=== PATIENT | male | born 1960 | race Caucasian/White ===

== ENCOUNTER 2016-11-11 09:49 | Emergency (ER) | payer OTHER ==
[~2016-11-11] VITALS: Ht 172.7 cm; Wt 77.3 kg
[~2016-11-11 09:49] MED LIST: NORC7.5T PO; ULTR50TA PO
[2016-11-11 09:51] VITALS: BP 145/88; PULSE 94; RESP 16; TEMP 98.6; O2SAT 95
[2016-11-11 10:00] VITALS: BP 161/97; PULSE 96; RESP 18; O2SAT 95; O2SAT 98
[2016-11-11] MEDS ORDERED: RESP: ALBUTEROL 2.5 MG/IPRATROPIUM 0.5 MG NEB (SCH) NEB ONE (10:30)
[2016-11-11] MEDS ORDERED: RESP: LIDOCAINE HCL 4% PF 5 ML NEB NEB ONE (10:30)
[2016-11-11] MEDS ORDERED: SODIUM CHLOR 0.9% 1000 ML INJ 1,000 ML IV ONE (10:30)
--- NOTE | 2016-11-11 10:33 | PD ---
HPI Chief Complaint: Cold / Flu Symptoms Time Seen by Provider: 09:59 Travel History International Travel<30 days: No Contact w/Intl Traveler<30days: No Traveled to known affect area: No History of Present Illness HPI The patient is a 56-year-old Qatari-speaking male who presents to the emergency department for cough and cold symptoms. A crew leader was used via cell phone for the history. The patient notes a 2 to three-day history of cough and cold. The patient does note a dry mostly nonproductive cough as well as postnasal drainage, chest congestion, and facial congestion. The patient complains of difficulty sleeping at night secondary to the cough. The patient also complains of intermittent chills and sweats, but is unsure if he has had a fever. The patient does complain of mild nausea with decreased appetite, but denies any vomiting, diarrhea, or abdominal pain. He does complain of mild myalgias. The patient denies any history of chronic medical problems, however, states occasionally his blood pressure is elevated. The patient takes no current medications and denies previous surgeries. The patient also denies tobacco use. PFSH Past Medical History Cancer: No Cardiovascular Problems: Yes (POSSIBLE HTN) Diminished Hearing: No Hepatitis: No Hypertension: Yes (POSSIBLE) Psychiatric: No Immunizations Current: Yes Tetanus Vaccination: > 5 Years Influenza Vaccination: Yes Past Surgical History Abdominal Surgery: Yes (hernia) Eye Surgery: Yes (CHILdHOOD) Joint Replacement: No Pacemaker: No Other Surgery: Yes (HERNIA REPAIR) Social History Alcohol Use: No Tobacco Use: No Substance Use: No Allergies-Medications (Allergen,Severity, Reaction): Coded Allergies: No Known Allergies (Verified , 11/11/16) Reported Meds & Prescriptions Reported Meds & Active Scripts Active [place] 7.5/325 (Hydrocodone/Acetaminophen 7.5/325) 7.5 Mg/325 Mg Tab 1 Tab PO Q4H PRN Reported Ultram (Tramadol HCl) 50 Mg Tab 50 Mg PO Q4H PRN Review of Systems Except as stated in HPI: all other systems reviewed are Neg General / Constitutional: Positive: Chills, No: Fever HENT: Positive: Sore Throat, Congestion Cardiovascular: No: Chest Pain or Discomfort Respiratory: Positive: Cough, No: Shortness of Breath Gastrointestinal: Positive: Nausea, Loss of Appetite, No: Vomiting, Diarrhea, Abdominal Pain Musculoskeletal: Positive: Myalgias Physical Exam Narrative GENERAL: Awake, alert, 56-year-old male who appears his stated age and is in no acute respiratory distress. SKIN: Warm and dry. HEAD: Atraumatic. Normocephalic. EYES: Pupils equal and round. No scleral icterus. No injection or drainage. ENT: No nasal bleeding or discharge. Oropharynx reveals erythema, however, no exudate visible. NECK: Trachea midline. No JVD. CARDIOVASCULAR: Regular, heart rate in the 90s. No audible murmur. RESPIRATORY: No accessory muscle use. Clear to auscultation. Breath sounds equal bilaterally. GASTROINTESTINAL: Abdomen soft, non-tender, nondistended. No rebound tenderness. MUSCULOSKELETAL: No obvious deformities. No clubbing. No cyanosis. No edema. NEUROLOGICAL: Awake and alert. No obvious cranial nerve deficits. Motor grossly within normal limits. Qatari-speaking.. PSYCHIATRIC: Appropriate mood and affect; insight and judgment normal. Data Data Last Documented VS Vital Signs Date Time Temp Pulse Resp B/P Pulse Ox O2 Delivery O2 Flow Rate FiO2 11/11/16 11:45 84 16 152/80 97 Nasal Cannula 2 11/11/16 09:51 98.6 Orders Complete Blood Count With Diff (11/11/16 10:18) Comprehensive Metabolic Panel (11/11/16 10:18) Chest, Single Ap (11/11/16 ) Influenzae A/B Antigen (11/11/16 10:18) Troponin I (11/11/16 10:18) Creatine Kinase (Cpk) (11/11/16 10:18) Lactic Acid (11/11/16 10:18) Albuterol-Ipratropium Neb (Duoneb Neb) (11/11/16 10:30) Lidocaine Pf 4% Neb (Lidocaine Pf 4% Neb (11/11/16 10:30) Sodium Chlor 0.9% 1000 Ml Inj (Ns 1000 M (11/11/16 10:30) Electrocardiogram (11/11/16 10:08) Labs Laboratory Tests Test 11/11/16 10:25 White Blood Count 6.6 TH/MM3 Red Blood Count 4.60 MIL/MM3 Hemoglobin 12.0 GM/DL Hematocrit 36.2 % Mean Corpuscular Volume 78.8 FL Mean Corpuscular Hemoglobin 26.2 PG Mean Corpuscular Hemoglobin 33.2 % Concent Red Cell Distribution Width 13.1 % Platelet Count 226 TH/MM3 Mean Platelet Volume 8.7 FL Neutrophils (%) (Auto) 69.6 % Lymphocytes (%) (Auto) 15.6 % Monocytes (%) (Auto) 13.9 % Eosinophils (%) (Auto) 0.5 % Basophils (%) (Auto) 0.4 % Neutrophils # (Auto) 4.6 TH/MM3 Lymphocytes # (Auto) 1.0 TH/MM3 Monocytes # (Auto) 0.9 TH/MM3 Eosinophils # (Auto) 0.0 TH/MM3 Basophils # (Auto) 0.0 TH/MM3 CBC Comment DIFF FINAL Differential Comment Sodium Level 137 MEQ/L Potassium Level 4.1 MEQ/L Chloride Level 102 MEQ/L Carbon Dioxide Level 26.3 MEQ/L Anion Gap 9 MEQ/L Blood Urea Nitrogen 15 MG/DL Creatinine 0.82 MG/DL Estimat Glomerular Filtration 97 ML/MIN Rate Random Glucose 107 MG/DL Lactic Acid Level 0.8 mmol/L Calcium Level 8.0 MG/DL Total Bilirubin 0.8 MG/DL Aspartate Amino Transf 31 U/L (AST/SGOT) Alanine Aminotransferase 28 U/L (ALT/SGPT) Alkaline Phosphatase 78 U/L Total Creatine Kinase 291 U/L Troponin I LESS THAN 0.02 NG/ML Total Protein 8.1 GM/DL Albumin 3.6 GM/DL MDM Medical Decision Making Medical Screen Exam Complete: Yes Emergency Medical Condition: Yes Medical Record Reviewed: Yes Interpretation(s) EKG reveals normal sinus rhythm with a rate 88. No ischemic changes or ectopy noted. Last Impressions Chest X-Ray 11/11/16 0000 Signed Impressions: Service Date/Time: Friday, November 11, 2016 10:50 - CONCLUSION: Normal examination. Soren Figueroa MD Date/Time Procedure Status Source Growth 11/11/16 10:25 Influenza Types A,B Antigen (SHADI) - Final Complete Nasal Aspirate NEGATIVE FOR FLU A AND B ANTIGEN.... Laboratory Tests Test 11/11/16 10:25 White Blood Count 6.6 TH/MM3 Red Blood Count 4.60 MIL/MM3 Hemoglobin 12.0 GM/DL Hematocrit 36.2 % Mean Corpuscular Volume 78.8 FL Mean Corpuscular Hemoglobin 26.2 PG Mean Corpuscular Hemoglobin 33.2 % Concent Red Cell Distribution Width 13.1 % Platelet Count 226 TH/MM3 Mean Platelet Volume 8.7 FL Neutrophils (%) (Auto) 69.6 % Lymphocytes (%) (Auto) 15.6 % Monocytes (%) (Auto) 13.9 % Eosinophils (%) (Auto) 0.5 % Basophils (%) (Auto) 0.4 % Neutrophils # (Auto) 4.6 TH/MM3 Lymphocytes # (Auto) 1.0 TH/MM3 Monocytes # (Auto) 0.9 TH/MM3 Eosinophils # (Auto) 0.0 TH/MM3 Basophils # (Auto) 0.0 TH/MM3 CBC Comment DIFF FINAL Differential Comment Sodium Level 137 MEQ/L Potassium Level 4.1 MEQ/L Chloride Level 102 MEQ/L Carbon Dioxide Level 26.3 MEQ/L Anion Gap 9 MEQ/L Blood Urea Nitrogen 15 MG/DL Creatinine 0.82 MG/DL Estimat Glomerular Filtration 97 ML/MIN Rate Random Glucose 107 MG/DL Lactic Acid Level 0.8 mmol/L Calcium Level 8.0 MG/DL Total Bilirubin 0.8 MG/DL Aspartate Amino Transf 31 U/L (AST/SGOT) Alanine Aminotransferase 28 U/L (ALT/SGPT) Alkaline Phosphatase 78 U/L Total Creatine Kinase 291 U/L Troponin I LESS THAN 0.02 NG/ML Total Protein 8.1 GM/DL Albumin 3.6 GM/DL Differential Diagnosis Differential diagnosis includes viral syndrome, influenza, bronchitis, pneumonia , dehydration, congestive heart failure, ACS, pulmonary embolism. Narrative Course IV was established, labs are drawn and sent, and the patient was placed on cardiac telemetry monitoring and continuous pulse oximetry monitoring. EKG was ordered and interpreted. Chest x-ray was ordered. Influenza screen was sent to lab. The patient was administered to [facility] with respiratory lidocaine and 1 L of IV fluids. Chest x-rays unremarkable. Influenza screen is negative. Patient's white count is normal and lactic acid is reassuring. Patient's CPK/troponin are negative. Patient's exam is consistent with bronchitis. The patient will be discharged home on Bactrim, prednisone, cough medicine, and albuterol inhaler. The patient is advised to follow-up with her primary physician. Diagnosis Primary Impression: Bronchitis Patient Instructions: General Instructions Additional Instructions: Medications as directed. Follow-up with your primary physician. Return if symptoms worsen or progress. Med/Other Pt SpecificInfo: Prescription(s) given Scripts Guaifenesin-Codeine Liq 100-10 Mg/5 Ml Soln10 Ml PO Q6H PRN (COUGH) #1 BOTTLE Ref 0 Prov:Silverio Coffman MD 11/11/16 Sulfamethoxazole-Trimethoprim (Bactrim DS)800-160 Mg Tab1 Tab PO BID #14 TAB Ref 0 Prov:Silverio Coffman MD 11/11/16 Albuterol 18 GM Inh (Ventolin Hfa 18 GM Inh)90 Mcg/Act Aer2 Puff INH Q4H PRN ( SHORTNESS OF BREATH) #1 INHALER Ref 0 Prov:Silverio Coffman MD 11/11/16 Prednisone (Deltasone)20 Mg Tab40 Mg PO DAILY 5 Days Ref 0 Prov:Silverio Coffman MD 11/11/16 Disposition: 01 DISCHARGE HOME Condition: Stable Silverio Coffman MD Nov 11, 2016 10:33
[2016-11-11 10:40] LABS: AUTOMATED NEUTROPHIL # 4.6 TH/MM3 (1.8-7.7); BASOPHIL % 0.4 % (0.0-2.0); EOSINOPHIL % 0.5 % (0.0-4.0); HEMATOCRIT 36.2 % (39.0-51.0); HEMO FLAGS DIFF FINAL; LYMPH % 15.6 % (9.0-44.0); MEAN CELL VOLUME 78.8 FL (80.0-100.0); MEAN CORPUSCULAR HEMOGLOBIN 26.2 PG (27.0-34.0); MEAN CORPUSCULAR HGB CONC 33.2 % (32.0-36.0); MONO % 13.9 % (0.0-8.0); NEUT % 69.6 % (16.0-70.0); PLATELET COUNT 226 TH/MM3 (150-450); RED CELL DISTRIBUTION WIDTH 13.1 % (11.6-17.2); WHITE BLOOD COUNT 6.6 TH/MM3 (4.0-11.0)
[2016-11-11 10:58] LABS: ALKALINE PHOSPHATASE 78 U/L (45-117); ALT (GPT) 28 U/L (12-78); ANION GAP 9 MEQ/L (5-15); AST (GOT) 31 U/L (15-37); BICARBONATE 26.3 MEQ/L (21.0-32.0); BLOOD UREA NITROGEN 15 MG/DL (7-18); CHLORIDE 102 MEQ/L (98-107); CREATINE KINASE 291 U/L (39-308); GLOMERULAR FILTRATION RATE 97 ML/MIN (>89); POTASSIUM 4.1 MEQ/L (3.5-5.1); SODIUM (NA) 137 MEQ/L (136-145); TOTAL BILIRUBIN ADULT 0.8 MG/DL (0.2-1.0)
--- NOTE | 2016-11-11 11:05 | RADRPT ---
EXAM DATE/TIME: 11/11/2016 10:50 [facility] COMPARISON: No previous studies available for comparison. INDICATIONS : Cough MEDICAL HISTORY : None. SURGICAL HISTORY : None. ENCOUNTER: Initial ACUITY: 1 day PAIN SCORE: 0/10 LOCATION: Bilateral chest FINDINGS: A single view of the chest demonstrates the lungs to be symmetrically aerated without evidence of mas s, infiltrate or effusion. The cardiomediastinal contours are unremarkable. Osseous structures are intact. CONCLUSION: Normal examination. Soren Figueroa MD on November 11, 2016 at 11:03 Board Certified Radiologist. This report was verified electronically.
[2016-11-11 11:45] VITALS: BP 152/80; PULSE 84; RESP 16; O2SAT 97
[2016-11-11] MEDS ORDERED: VENTAER INH (12:36)
[2016-11-11] MEDS ORDERED: GUAI100S5 PO (12:36)
[2016-11-11] MEDS ORDERED: PRED-503 PO (12:36)
[2016-11-11] MEDS ORDERED: BACT800T5 PO (12:36)
[2016-11-11 13:00] VITALS: BP 135/67; PULSE 85; RESP 16; O2SAT 97
--- NOTE | 2016-11-11 14:27 | EKG ---
Date Performed: 11/11/2016 Time Performed: 10:08:40 PTAGE: 56 years EKG: Sinus rhythm NORMAL ECG Compared to prior tracing no significant change PREVIOUS TRACING : 12/01/2015 11.09 DOCTOR: Archie Erazo Interpretating Date/Time 11/11/2016 14:26:11
== END 2016-11-11 13:37 | disposition home or self-care (01) ==
LOC: NEPE 09:49
DX: J40 Bronchitis, not specified as acute or chronic (principal); R11.0 Nausea; R03.0 Elevated blood-pressure reading, without diagnosis of hypertension; M79.1 Myalgia
CPT/HCPCS: 71010; 80053; 82550; 83605; 84484; 85025; 87804; 93005; 94664; 96360; 99284; J7030

== ENCOUNTER 2016-12-19 09:33 | Emergency (ER) | payer SELFPAY ==
[~2016-12-19] VITALS: Ht 172.7 cm; Wt 90.0 kg
[~2016-12-19 09:33] MED LIST changes: +BACT800T5 PO; +GUAI100S5 PO; +PRED-503 PO; +VENTAER INH
[2016-12-19 09:45] VITALS: BP 161/98; PULSE 81; RESP 18; O2SAT 100
[2016-12-19] MEDS ORDERED: ORPHENADRINE INJ 60 MG/2 ML AMP IM ONE (09:45)
[2016-12-19] MEDS ORDERED: KETOROLAC TROMETHAMINE 60 MG/2 ML (IM) VIAL IM ONE (09:45)
--- NOTE | 2016-12-19 09:45 | PD ---
HPI Chief Complaint: back pain Time Seen by Provider: 09:40 Travel History International Travel<30 days: No Contact w/Intl Traveler<30days: No History of Present Illness HPI 56-year-old male presents by ambulance with low back pain. He states that he has history of chronic back pain. He states he took a Motrin prior to arrival but it did not help. He states he's had injections from his doctor before but does not remember the name. He denies any trauma, incontinence, weakness or other concurrent complaints. Patient is sharp and severe. History was confirmed by director mortgage services as patient is [place]ayan speaking. [facility] Past Medical History Narrative Medical back pain Past Surgical History Other Surgery: Yes (back, hernia) Social History Tobacco Use: No Allergies-Medications (Allergen,Severity, Reaction): Coded Allergies: No Known Allergies (Unverified , 12/19/16) Reported Meds & Prescriptions Reported Meds & Active Scripts Active Skelaxin (Metaxalone) 800 Mg Tab 800 Mg PO HS PRN Review of Systems Except as stated in HPI: all other systems reviewed are Neg Physical Exam Narrative GENERAL: Well-nourished, well-developed patient. SKIN: Warm and dry. HEAD: Normocephalic and atraumatic. EYES: No injection or drainage. ENT: No nasal drainage noted. NECK: Supple, trachea midline. CARDIOVASCULAR: Regular rate and rhythm RESPIRATORY: Breath sounds equal bilaterally. No accessory muscle use. GASTROINTESTINAL: Abdomen soft, non-tender, nondistended. EXTREMITIES: No edema. BACK: Nontender without obvious deformity in midline, no cvat, ttp to bilateral lumbar paraspinal, right greater then left. NEUROLOGICAL: Awake and alert. Motor and sensory grossly within normal limits. Normal speech. Data Data Last Documented VS Vital Signs Date Time Temp Pulse Resp B/P Pulse Ox O2 Delivery O2 Flow Rate FiO2 12/19/16 12:20 97.8 76 17 150/77 99 Orders Spine, Lumbar - Ltd (Ap & Lat) (12/19/16 ) Ketorolac Inj (Toradol Inj) (12/19/16 09:45) Orphenadrine Inj (Norflex Inj) (12/19/16 09:45) MDM Medical Decision Making Medical Screen Exam Complete: Yes Emergency Medical Condition: Yes Medical Record Reviewed: Yes (pmh confirmed) Interpretation(s) Last 24 hours Impressions Lumbar Spine X-Ray 12/19/16 0000 Signed Impressions: Service Date/Time: Monday, December 19, 2016 10:08 - CONCLUSION: Unremarkable limited examination of the lumbar spine. Paco Crabtree MD Differential Diagnosis Strain, disc disease,sciatica Narrative Course Will check Limited x-ray given prior surgery and dose with Toradol and Norflex and reevaluate. Stable vitals without red flag symptoms. Patient denies any new complaints and states that they are feeling better. Patient happy with care, all questions answered. Patient knows that follow up is incumbent on them and to return to the emergency room immediately if new or worsening symptoms develop. Patient given strict return precautions, vitals reviewed and are normal, agrees to further workup as an outpatient. Diagnosis Primary Impression: Back pain Qualified Code: M54.5 - Acute bilateral low back pain, with sciatica presence unspecified Patient Instructions: General Instructions Additional Instructions: return as needed, follow with primary, alternate tylenol and motrin Med/Other Pt SpecificInfo: Prescription(s) given Scripts Metaxalone (Skelaxin)800 Mg Fzz122 Mg PO HS PRN (PAIN SCALE 1 TO 10) #10 TAB Prov:Charlotte Alvarenga MD 12/19/16 Disposition: 01 DISCHARGE HOME Condition: Stable Charlotte Alvarenga MD Dec 19, 2016 09:45 Condition: Stable Charlotte Alvarenga MD Dec 19, 2016 09:45
--- NOTE | 2016-12-19 10:25 | RADRPT ---
EXAM DATE/TIME: 12/19/2016 10:08 [facility] COMPARISON: No previous studies available for comparison. INDICATIONS : Lower back pain, no injury. MEDICAL HISTORY : None. SURGICAL HISTORY : None. ENCOUNTER: Initial ACUITY: 1 day PAIN SCORE: 10/10 LOCATION: Bilateral lower back FINDINGS: Two view examination was performed. There are five non-rib bearing vertebral bodies. The vertebral bodies are in normal alignment without evidence of subluxation or scoliosis. The disc spaces are pradip ntained. The pedicles are intact. Bony mineralization is normal. No fracture is identified. CONCLUSION: Unremarkable limited examination of the lumbar spine. Paco Crabtree MD on December 19, 2016 at 10:23 Board Certified Radiologist. This report was verified electronically.
[2016-12-19 10:52] VITALS: RESP 17
[2016-12-19] MEDS ORDERED: META800T81 PO (10:54)
[2016-12-19 12:20] VITALS: BP 150/77; TEMP 97.8
== END 2016-12-19 12:20 | disposition home or self-care (01) ==
LOC: NEPC 09:33 → MERGE 09:33 → NEPC 12:20
DX: M54.9 Dorsalgia, unspecified (principal)
CPT/HCPCS: 72100; J1885; J2360; 96372